=== PATIENT | female | born 1930 | race Hispanic/Latino ===

== ENCOUNTER → 2018-03-27 | Outpatient (CLI) | payer MEDICARE | END | disposition home or self-care (01) | LOC: RAH 09:29 | PROVIDERS: ATTEND Internal Medicine | DX: I08.3 Combined rheumatic disorders of mitral, aortic and tricuspid valves (principal); I31.3 Pericardial effusion (noninflammatory); I11.9 Hypertensive heart disease without heart failure; I48.91 Unspecified atrial fibrillation | CPT/HCPCS: 93306 ==

== ENCOUNTER 2018-04-15 19:58 | Emergency (ER) | payer MEDICARE ==
[2018-04-15] MEDS ORDERED: SODIUM CHLORIDE 0.9% 1000ML 1,000 ML IV ONE (20:55)
== END 2018-04-16 00:49 | disposition home or self-care (01) ==
LOC: EDH 19:58
DX: E10.649 Type 1 diabetes mellitus with hypoglycemia without coma (principal); I10 Essential (primary) hypertension; I48.91 Unspecified atrial fibrillation; Z88.0 Allergy status to penicillin; Z88.6 Allergy status to analgesic agent
CPT/HCPCS: 82948 ×2; 96360; 96361; 99283; J7030

== ENCOUNTER → 2018-10-31 | Outpatient (CLI) | payer MEDICARE ==
[~2018-10-31] MED LIST: APIX2.5T PO; CALC1TAB2 PO; CARV6.25 PO; CHOL100044 PO; CPAP NOTE; FERR325T22 PO; FLUT16H NASAL; FOLI1TAB15 PO; FURO20TA4 PO; LORA-705 PO; ROSU20TA23 PO
== END | disposition home or self-care (01) ==
LOC: RAH 16:20
PROVIDERS: ATTEND Internal Medicine
DX: J90 Pleural effusion, not elsewhere classified (principal)
CPT/HCPCS: 71046

== ENCOUNTER 2018-11-01 13:38 | Inpatient (IN) | payer MEDICARE ==
[~2018-11-01] VITALS: Ht 157.5 cm; Wt 73.7 kg
[~2018-11-01 13:38] MED LIST changes: -LORA-705 PO
[2018-11-01 14:23] LABS: BASOPHILS % (AUTO) 1.1 % (0.0-5.0); EOSINOPHILS % (AUTO) 1.1 % (0.0-8.0); LYMPHOCYTES % (AUTO) 16.5 % (21.0-51.0); MEAN CORPUSCULAR HEMOGLOBIN 31.9 pg (27.0-33.0); MEAN CORPUSCULAR HGB CONC 33.4 g/dL (32.0-36.0); MEAN CORPUSCULAR VOLUME 95.6 fL (79-99); MONOCYTES % (AUTO) 7.5 % (3.0-13.0); NEUTROPHILS % (AUTO) 73.8 % (40.0-77.0); NUCLEATED RED BLOOD CELLS 0.1 % (0.0-0.19); PLATELET COUNT (AUTO) 169 K/uL (130-400); RED BLOOD CELL COUNT(AUTO) 3.97 MIL/uL (4.00-5.50); RED CELL DISTRIBUTION WIDTH 15.3 % (11.0-15.5); WHITE BLOOD COUNT (AUTO) 5.3 K/uL (4.8-10.8)
[2018-11-01 14:33] LABS: POTASSIUM 3.6 mmol/L (3.5-5.1)
[2018-11-01 14:36] LABS: INR 1.29 (0.85-1.15); PARTIAL THROMBOPLASTIN TIME 35.5 SEC (26.3-35.5); PROTHROMBIN TIME 13.5 SEC (9.6-11.6)
[2018-11-01 14:38] LABS: TOTAL PROTEIN, SERUM 7.2 g/dL (6.0-8.3)
[2018-11-01 14:49] LABS: B-TYPE NATRIURETIC PEPTIDE 2160 pg/mL (0-100)
[2018-11-01 15:24] LABS: APPEARANCE,URINE CLEAR (CLEAR); BILIRUBIN,URINE NEGATIVE (NEGATIVE); COLOR,URINE YELLOW (YELLOW); GLUCOSE, URINE (UA) NEGATIVE (NEGATIVE); KETONES,URINE NEGATIVE (NEGATIVE); LEUKOCYTE ESTERASE ,URINE NEGATIVE (NEGATIVE); NITRATE,URINE NEGATIVE (NEGATIVE); OCCULT BLOOD,URINE NEGATIVE (NEGATIVE); PH,URINE 5.5 (5.0-8.0); PROTEIN,URINE NEGATIVE (NEGATIVE); UROBILINOGEN,URINE 0.2 mg/dL (0.2-1.0)
[2018-11-01] MEDS ORDERED: ASPIRIN 325 MG TABLET ONE (15:54)
[2018-11-01] MEDS ORDERED: FUROSEMIDE 10 MG/ML 4ML VIAL ONE (15:54)
[2018-11-01] MEDS ORDERED: GLUCAGON 1MG KIT 1 MG ML IM PRN (18:45)
[2018-11-01] MEDS ORDERED: DEXTROSE 50%-WATER 50 ML DISP.SYRIN IV PRN (18:45)
[2018-11-01] MEDS ORDERED: ONDANSETRON HCL 4 MG/2 ML VIAL IV PRN (19:00)
[2018-11-01] MEDS ORDERED: ACETAMINOPHEN 325 MG TAB PO PRN ×2 (19:00)
[2018-11-01] MEDS ORDERED: NITROGLYCERIN 0.4 MG SL TAB SL PRN (19:00)
[2018-11-01] MEDS ORDERED: FAMOTIDINE/PF 20 MG/2 ML VIAL IV ONE (19:30)
[2018-11-01 20:07] LABS: HEMOGLOBIN A1C 6.3 % (4.0-6.0)
[2018-11-01 20:20] VITALS: BP 113/80
[2018-11-01] MEDS: INSULIN HUMULIN R 100 UNIT/ML 3ML SQ SCH (21:00)
[2018-11-01] MEDS: FAMOTIDINE 20MG TAB 20 MG TAB PO SCH (21:59)
[2018-11-01 22:38] LABS: CREATINE KINASE, TOTAL 38 U/L (21-232); MYOGLOBIN 87 ng/mL (10-92); TROPONIN I < 0.04 ng/mL (0.00-0.06)
[2018-11-01 23:45] VITALS: BP 115/81
[2018-11-02 03:45] VITALS: BP 121/81
[2018-11-02] MEDS ORDERED: ALPRAZOLAM 0.25 MG TABLET ONE (05:24)
[2018-11-02] MEDS ORDERED: ALPRAZOLAM 0.25 MG TABLET PO ONE (05:30)
[2018-11-02] MEDS ORDERED: FUROSEMIDE 10 MG/ML 4ML VIAL IVP SCH (06:00)
[2018-11-02] MEDS: INSULIN HUMULIN R 100 UNIT/ML 3ML SQ SCH ×4 (06:13→21:00)
[2018-11-02 06:38] LABS: BASOPHILS % (AUTO) 1.6 % (0.0-5.0); EOSINOPHILS % (AUTO) 1.1 % (0.0-8.0); HEMATOCRIT 36.4 % (36-48); LYMPHOCYTES % (AUTO) 13.2 % (21.0-51.0); MEAN CORPUSCULAR HEMOGLOBIN 31.2 pg (27.0-33.0); MEAN CORPUSCULAR HGB CONC 32.7 g/dL (32.0-36.0); MEAN CORPUSCULAR VOLUME 95.2 fL (79-99); MONOCYTES % (AUTO) 9.2 % (3.0-13.0); NEUTROPHILS % (AUTO) 74.9 % (40.0-77.0); PLATELET COUNT (AUTO) 177 K/uL (130-400); RED BLOOD CELL COUNT(AUTO) 3.82 MIL/uL (4.00-5.50); RED CELL DISTRIBUTION WIDTH 15.8 % (11.0-15.5); WHITE BLOOD COUNT (AUTO) 5.2 K/uL (4.8-10.8)
[2018-11-02 07:00] VITALS: BP 113/66
[2018-11-02 08:35] LABS: B-TYPE NATRIURETIC PEPTIDE 2030 pg/mL (0-100)
[2018-11-02] MEDS ORDERED: ASPIRIN 325 MG TABLET PO SCH (09:00)
[2018-11-02] MEDS ORDERED: ENOXAPARIN SODIUM 30 MG/0.3 ML SQ SCH (09:00)
[2018-11-02 09:47] LABS: ALANINE AMINOTRANSFERASE 17 U/L (12-78); ALBUMIN 2.6 g/dL (3.5-5.0); ASPARTATE AMINOTRANSFERASE 16 U/L (10-37); BILIRUBIN,TOTAL 1.2 mg/dL (0.2-1.0); CARBON DIOXIDE 26 mmol/L (21-32); CHLORIDE 104 mmol/L (101-111); CREATINE KINASE, TOTAL 31 U/L (21-232); GLOMERULAR FILTR. RATE CALC 25 mL/min (>60); GLUCOSE,RANDOM 115 mg/dL (70-105); MYOGLOBIN 88 ng/mL (10-92); POTASSIUM 3.3 mmol/L (3.5-5.1); SODIUM SERUM 142 mmol/L (136-145); TOTAL PROTEIN, SERUM 6.4 g/dL (6.0-8.3); TROPONIN I < 0.04 ng/mL (0.00-0.06); UREA NITROGEN, BLOOD 38 mg/dL (7-18)
[2018-11-02] MEDS ORDERED: LORA-705 PO (10:12)
[2018-11-02 11:00] VITALS: BP 114/69
[2018-11-02] MEDS ORDERED: METOPROLOL TARTRATE 1 MG/ML 5ML VIAL IV PRN (14:30)
--- NOTE | 2018-11-02 15:20 | NUR ---
patient was exhibiting confusion. I call the tele on how the patient is running on the monitor they reported to me that she is on 110 to 120s. reported to Yohannes [employer], he said that he will order low dose betablocker and ekg.
--- NOTE | 2018-11-02 15:49 | NUR ---
cm note met with patient and [facility] resides at home alone, has a provider a few hrs daily, [facility] ambulates with walker, has daughter erin that assists as needed. and has a sister as well. [facility] plan is back to same home setting at tx. Addendum: 11/02/18 at 1552 by BRYON ALICIA CM Amended: Links added.
[2018-11-02 16:00] VITALS: BP 168/71
[2018-11-02] MEDS: FUROSEMIDE 10 MG/ML 2ML VIAL IV SCH (17:30)
[2018-11-02 19:40] VITALS: BP 127/69
[2018-11-02] MEDS: FAMOTIDINE 20MG TAB 20 MG TAB PO SCH (20:12)
[2018-11-02] MEDS: CARVEDILOL 6.25 MG TABLET PO SCH (20:14)
[2018-11-02 23:22] VITALS: BP 133/59
[2018-11-03] MEDS ORDERED: POTASSIUM CHLORIDE 20 MEQ ERTAB PO SCH (01:00)
[2018-11-03 03:17] VITALS: BP 107/72
[2018-11-03] MEDS: FUROSEMIDE 10 MG/ML 2ML VIAL IV SCH (04:33)
[2018-11-03 04:51] LABS: CREATININE 2.1 mg/dL (0.5-1.5); MAGNESIUM 1.8 mg/dL (1.80-2.40); POTASSIUM 3.5 mmol/L (3.5-5.1)
[2018-11-03] MEDS: INSULIN HUMULIN R 100 UNIT/ML 3ML SQ SCH ×3 (06:34→21:00)
[2018-11-03 07:29] VITALS: BP 117/77
[2018-11-03] MEDS: CARVEDILOL 6.25 MG TABLET PO SCH ×2 (08:45→21:17)
[2018-11-03] MEDS: APIXABAN 2.5 MG TABLET PO SCH ×2 (08:46→21:08)
[2018-11-03] MEDS: FUROSEMIDE 20 MG TABLET PO SCH ×2 (08:46→16:09)
[2018-11-03] MEDS: ASPIRIN 325 MG TABLET PO SCH (08:46)
[2018-11-03 11:02] VITALS: BP 88/55
[2018-11-03 16:26] VITALS: BP 91/51
[2018-11-03 19:58] VITALS: BP 105/76
[2018-11-03] MEDS: FAMOTIDINE 20MG TAB 20 MG TAB PO SCH (21:08)
[2018-11-04] VITALS: BP 108/62
[2018-11-04 04:00] VITALS: BP 97/62
[2018-11-04 04:10] LABS: BASOPHILS % (AUTO) 1.4 % (0.0-5.0); HEMATOCRIT 35.6 % (36-48); LYMPHOCYTES % (AUTO) 17.1 % (21.0-51.0); MEAN CORPUSCULAR HEMOGLOBIN 31.4 pg (27.0-33.0); MEAN CORPUSCULAR HGB CONC 32.9 g/dL (32.0-36.0); MEAN CORPUSCULAR VOLUME 95.4 fL (79-99); MONOCYTES % (AUTO) 10.6 % (3.0-13.0); NEUTROPHILS % (AUTO) 68.9 % (40.0-77.0); PLATELET COUNT (AUTO) 176 K/uL (130-400); RED BLOOD CELL COUNT(AUTO) 3.73 MIL/uL (4.00-5.50); RED CELL DISTRIBUTION WIDTH 15.5 % (11.0-15.5); WHITE BLOOD COUNT (AUTO) 5.5 K/uL (4.8-10.8)
[2018-11-04 04:20] LABS: CREATININE 2.1 mg/dL (0.5-1.5); POTASSIUM 3.3 mmol/L (3.5-5.1)
[2018-11-04 04:40] LABS: B-TYPE NATRIURETIC PEPTIDE 1560 pg/mL (0-100)
[2018-11-04] MEDS: INSULIN HUMULIN R 100 UNIT/ML 3ML SQ SCH ×3 (06:30→16:30)
[2018-11-04 07:25] VITALS: BP 106/56
[2018-11-04] MEDS ORDERED: POTASSIUM CHLORIDE 20 MEQ ERTAB PO SCH (09:00)
[2018-11-04] MEDS ORDERED: ASPIRIN 81MG TAB.CHEW ONE (10:01)
[2018-11-04] MEDS: APIXABAN 2.5 MG TABLET PO SCH (10:06)
[2018-11-04] MEDS: ASPIRIN 325 MG TABLET PO SCH (10:06)
[2018-11-04] MEDS: CARVEDILOL 6.25 MG TABLET PO SCH (10:07)
[2018-11-04 11:18] VITALS: BP 93/74
--- NOTE | 2018-11-04 13:00 | NUR ---
REFERRAL TO [facility]- ACCEPTANCE CONFIRMED PATIENT WILL GO BY PRIVATE CAR. FAMILY REQUESTING COPY OF MED REQ WILL INFORMED PRIMARY RN Addendum: 11/04/18 at 1641 by ARMANI NUNN RN CM Amended: Links added.
[2018-11-04] MEDS: FUROSEMIDE 20 MG TABLET PO SCH ×2 (13:49→17:47)
[2018-11-04 16:18] VITALS: BP 101/66
== END 2018-11-04 19:15 | DRG 291 ==
LOC: EDH 13:38 → EDHIP 18:30 → 4BH 20:19
PROVIDERS: ADMIT Hospitalist; ATTEND Hospitalist
DX: I13.0 Hypertensive heart and chronic kidney disease with heart failure and stage 1 through stage 4 chronic kidney disease, or unspecified chronic kidney disease (principal); I50.43 Acute on chronic combined systolic (congestive) and diastolic (congestive) heart failure; N18.4 Chronic kidney disease, stage 4 (severe); D68.59 Other primary thrombophilia; E11.22 Type 2 diabetes mellitus with diabetic chronic kidney disease; I48.2 Chronic atrial fibrillation; M10.9 Gout, unspecified; M19.90 Unspecified osteoarthritis, unspecified site; F41.9 Anxiety disorder, unspecified; F32.9 Major depressive disorder, single episode, unspecified; E11.21 Type 2 diabetes mellitus with diabetic nephropathy; E11.51 Type 2 diabetes mellitus with diabetic peripheral angiopathy without gangrene; E78.5 Hyperlipidemia, unspecified; F02.80 Dementia in other diseases classified elsewhere, unspecified severity, without behavioral disturbance, psychotic disturbance, mood disturbance, and anxiety; G30.9 Alzheimer's disease, unspecified; G47.33 Obstructive sleep apnea (adult) (pediatric); I42.0 Dilated cardiomyopathy; I44.7 Left bundle-branch block, unspecified; M81.0 Age-related osteoporosis without current pathological fracture; Z79.01 Long term (current) use of anticoagulants; Z79.899 Other long term (current) drug therapy; Z86.010 Personal history of colon polyps; Z98.42 Cataract extraction status, left eye; Z98.41 Cataract extraction status, right eye; Z88.0 Allergy status to penicillin; Z88.5 Allergy status to narcotic agent
CPT/HCPCS: 36415; 70450; 71045; 78580; 80048; 80053; 81003; 82550; 82948; 83036; 83735; 83874; 83880; 84484; 85025; 85378; 85610; 85730; 93005; 93306; 93970; 97039; 99291; A9540; G0378; J1650; J1940; J3490

== ENCOUNTER 2018-11-15 14:47 | Observation (INO) | payer MEDICARE ==
[~2018-11-15] VITALS: Ht 154.9 cm; Wt 74.0 kg
[~2018-11-15 14:47] MED LIST changes: +LORA-705 PO
[2018-11-15 15:26] LABS: BASOPHILS % (AUTO) 1.9 % (0.0-5.0); EOSINOPHILS % (AUTO) 1.2 % (0.0-8.0); HEMATOCRIT 38.5 % (36-48); LYMPHOCYTES % (AUTO) 16.3 % (21.0-51.0); MEAN CORPUSCULAR HEMOGLOBIN 31.5 pg (27.0-33.0); MEAN CORPUSCULAR HGB CONC 32.7 g/dL (32.0-36.0); MEAN CORPUSCULAR VOLUME 96.4 fL (79-99); MONOCYTES % (AUTO) 8.5 % (3.0-13.0); NEUTROPHILS % (AUTO) 72.1 % (40.0-77.0); PLATELET COUNT (AUTO) 138 K/uL (130-400); RED BLOOD CELL COUNT(AUTO) 3.99 MIL/uL (4.00-5.50); RED CELL DISTRIBUTION WIDTH 16.7 % (11.0-15.5); WHITE BLOOD COUNT (AUTO) 5.2 K/uL (4.8-10.8)
[2018-11-15 15:36] LABS: POTASSIUM 4.9 mmol/L (3.5-5.1)
[2018-11-15 15:41] LABS: BILIRUBIN,TOTAL 1.1 mg/dL (0.2-1.0); TOTAL PROTEIN, SERUM 7.3 g/dL (6.0-8.3)
[2018-11-15 15:50] LABS: CREATINE KINASE, TOTAL 78 U/L (21-232); MYOGLOBIN 111 ng/mL (10-92); TROPONIN I < 0.04 ng/mL (0.00-0.06)
[2018-11-15 16:02] LABS: B-TYPE NATRIURETIC PEPTIDE 1780 pg/mL (0-100)
[2018-11-15] MEDS ORDERED: FUROSEMIDE 10 MG/ML 4ML VIAL IVP SCH (17:30)
[2018-11-15] MEDS ORDERED: FUROSEMIDE 10 MG/ML 4ML VIAL ONE (19:04)
[2018-11-15] MEDS ORDERED: FLUTICASONE PROPIONATE 50MCG/SPRAY 16 GM BOTTLE NS PRN (20:30)
[2018-11-15 20:43] VITALS: BP 101/70
[2018-11-15] MEDS ORDERED: DiphenhydrAMINE HCL 50 MG/ML VIAL IV PRN (20:45)
[2018-11-15] MEDS ORDERED: ONDANSETRON HCL 4 MG/2 ML VIAL IV PRN (20:45)
[2018-11-15] MEDS ORDERED: MAG HYDROX/AL HYDROX/SIMETH ES 30 ML SUSP UDCUP PO PRN (20:45)
[2018-11-15] MEDS ORDERED: DIPHENHYDRAMINE HCL 25 MG CAPSULE PO PRN (20:45)
[2018-11-15] MEDS ORDERED: ACETAMINOPHEN 325 MG TAB PO PRN ×2 (20:45)
--- NOTE | 2018-11-15 20:45 | NUR ---
ADMIT PT ADMITTED TO ROOM 316, AAOX3. DENIES ANY PAINS NOR DISCOMFORT AT THIS TIME. NO NOTED SOB, BREATHING WITH EASE ON RA. ADMISSION CARE DONE. ADMISSION V/S MONITORED. ADMISSION DATA BASE UPDATED. ORIENTED TO ROOM AND UNIT.CALL LIGHT WITHIN REACH. IN FOR MORE CARE AND MANAGEMENT. Addendum: 11/15/18 at 2150 by MARQUEZ BENSON RN RN Amended: Links added.
[2018-11-15] MEDS: CARVEDILOL 6.25 MG TABLET PO SCH (21:07)
[2018-11-15] MEDS: APIXABAN 2.5 MG TABLET PO SCH (21:07)
[2018-11-16 00:28] VITALS: BP 104/81
--- NOTE | 2018-11-16 02:00 | NUR ---
ROUNDS PT RESTING WELL, FAIRLY ASLEEP WITH RESPIRATIONS EVEN AND UNLABORED ON RA. NO DISTRESS NOTED. KEPT UNDISTURBED FOR NOW. WILL CONTINUE TO MONITOR. CALL LIGHT WITHIN REACH.
[2018-11-16 04:16] VITALS: BP 111/84
--- NOTE | 2018-11-16 05:55 | NUR ---
ROUNDS PT RESTING WELL, STILL ASLEEP. NO DISTRESS NOTED. KEPT COMFORTABLE IN BED. FOR MORE CARE.
[2018-11-16 06:17] LABS: HEMATOCRIT 36.5 % (36-48); MEAN CORPUSCULAR HEMOGLOBIN 32.1 pg (27.0-33.0); MEAN CORPUSCULAR HGB CONC 33.5 g/dL (32.0-36.0); MEAN CORPUSCULAR VOLUME 96.1 fL (79-99); NUCLEATED RED BLOOD CELLS 0.1 % (0.0-0.19); PLATELET COUNT (AUTO) 135 K/uL (130-400); RED CELL DISTRIBUTION WIDTH 16.7 % (11.0-15.5); WHITE BLOOD COUNT (AUTO) 4.3 K/uL (4.8-10.8)
[2018-11-16 06:26] LABS: CREATININE 2.1 mg/dL (0.5-1.5); POTASSIUM 3.4 mmol/L (3.5-5.1)
[2018-11-16 07:00] VITALS: BP 103/66
--- NOTE | 2018-11-16 08:00 | NUR ---
AM ROUNDS, ASKING WHEN HER DRCheri IS COMING TO SEE HER.
[2018-11-16] MEDS ORDERED: ATORVASTATIN CALCIUM 40 MG TABLET PO SCH (09:00)
--- NOTE | 2018-11-16 10:00 | NUR ---
AMBULATED TO B WITH ASST. AND NOTED PT. BECAME VERY TIRED AND SOB
[2018-11-16] MEDS: APIXABAN 2.5 MG TABLET PO SCH ×2 (10:26→20:01)
[2018-11-16] MEDS: FOLIC ACID 1 MG TABLET PO SCH (10:26)
[2018-11-16] MEDS: CARVEDILOL 6.25 MG TABLET PO SCH ×2 (10:26→20:00)
[2018-11-16] MEDS: FERROUS SULFATE 325 MG TABLET.DR PO SCH (10:26)
[2018-11-16 11:00] VITALS: BP 101/71
[2018-11-16] MEDS ORDERED: ROSU20TA23 PO (12:59)
--- NOTE | 2018-11-16 13:00 | NUR ---
DR. PARKER IN TO SEE PT. MEDS. REVIEWED AND ORDERS ENTERED.
[2018-11-16 16:00] VITALS: BP 111/70
--- NOTE | 2018-11-16 16:00 | NUR ---
FAMILY MEMBER INTERESTED IN POSSIBLE SNF PLACEMENT AND CM MADE AWARE.
[2018-11-16] MEDS ORDERED: FUROSEMIDE 10 MG/ML 4ML VIAL IVP SCH (17:30)
--- NOTE | 2018-11-16 20:00 | NUR ---
MEDS SHIFT ASSESSMENT DONE, PLEASE REFER TO CHART. DUE MEDS ADMINISTERED, TOLERATED WELL. NO DISTRESS NOTED. NO CONCERNS VERBALIZED. CALL LIGHT WITHIN REACH. FAMILY STILL IN ROOM, VISITING WITH PT. Addendum: 11/16/18 at 2027 by MARQUEZ BENSON RN RN Amended: Links added.
[2018-11-16] MEDS: MEMANTINE HCL 5 MG TABLET PO SCH (20:01)
--- NOTE | 2018-11-16 20:54 | NUR ---
cm note spoke to daughter concetta ([phone]) and daughter states pt resides at home alone, needs assists with adls and uses walker ambulation. has private pay provider 2hrs daily, spoke to both daughters one in person and one over the phone, regading dc planning options, and also discussed hospice care options and answered questions. . per daughters wish to wait for decision until tomorrow, and they will discuss with their mother, but they feel that they want her to go to snf level of care. pt has been at [facility] and may wish to return to [facility]. cm to followup tomorrow . no dc needs. Addendum: 11/16/18 at 2057 by BRYON ALICIA Amended: Links added.
[2018-11-16 21:00] VITALS: BP 105/70
--- NOTE | 2018-11-16 22:00 | NUR ---
ROUNDS PT RESTING WELL, FAIRLY ASLEEP. NO DISTRESS NOTED. KEPT UNDISTURBED FOR NOW. BED ALARM KEPT ON. CALL LIGHT WITHIN REACH. WILL MONITOR PT.
[2018-11-17] VITALS (7 sets, daily range): BP systolic 100–123; BP diastolic 58–73
--- NOTE | 2018-11-17 02:00 | NUR ---
ROUNDS PT RESTING WELL, FAIRLY ASLEEP. NO DISTRESS NOTED. KEPT UNDISTURBED FOR NOW. WILL MONITOR CLOSELY.
--- NOTE | 2018-11-17 06:00 | NUR ---
ROUNDS PT EASILY AWAKENS AT THIS TIME. DENIES ANY NEEDS FOR NOW. SALINE LOCK FLUSHED, PATENT. KEPT COMFORTABLE. FOR MORE CARE.
[2018-11-17] MEDS ORDERED: POTA10CA44 PO (07:38)
[2018-11-17] MEDS ORDERED: MEMA5TAB7 PO (07:40)
[2018-11-17] MEDS: CARVEDILOL 6.25 MG TABLET PO SCH ×2 (08:09→21:51)
[2018-11-17 08:11] LABS: CREATININE 1.9 mg/dL (0.5-1.5); POTASSIUM 3.2 mmol/L (3.5-5.1)
[2018-11-17] MEDS: APIXABAN 2.5 MG TABLET PO SCH ×2 (09:11→21:51)
[2018-11-17] MEDS: MEMANTINE HCL 5 MG TABLET PO SCH ×2 (09:11→21:51)
[2018-11-17] MEDS: FAMOTIDINE 20MG TAB 20 MG TAB PO SCH (09:11)
[2018-11-17] MEDS: FOLIC ACID 1 MG TABLET PO SCH (09:11)
[2018-11-17] MEDS: FERROUS SULFATE 325 MG TABLET.DR PO SCH (09:12)
[2018-11-17] MEDS ORDERED: POTA10TA18 PO (09:40)
[2018-11-17] MEDS ORDERED: FURO40TA5 PO (09:40)
[2018-11-17] MEDS: POTASSIUM CHLORIDE 20 MEQ ERTAB PO SCH ×2 (13:19→21:52)
[2018-11-17] MEDS: FUROSEMIDE 40 MG TABLET PO SCH ×2 (13:19→20:17)
--- NOTE | 2018-11-17 17:00 | NUR ---
REFERRAL TO SNF IN PROCESS 1100 MET W DAUGHTERS- THEY WANT TO GO LOOK AT FACILITIES, DARIEL FOR [facility] DAWNDEE[facility] AND FOR [facility], PKTS SENT@ 1200 1600 FAMILY STILL HAS NOT DECIDED ON FACLITY CALL TO [facility]; DIV[facility] REP SAW PT ALSO; 1700 AND RN AWARE NO DECISION YET Addendum: 11/17/18 at 1951 by ARMANI NUNN RN CM Amended: Links added.
--- NOTE | 2018-11-17 19:35 | NUR ---
REPORT REPORT RECEIVED FROM BIA GAN NURSE. NURSE'S ROUNDS DONE. PT RESTING IN BED. NO COMPLAINTS VERBALIZED.
[2018-11-17] MEDS ORDERED: ATORVASTATIN CALCIUM 40 MG TABLET PO SCH (21:00)
[2018-11-17] MEDS ORDERED: ATORVASTATIN CALCIUM 20 MG TABLET PO SCH (21:00)
--- NOTE | 2018-11-17 21:50 | NUR ---
MEDS SHIFT ASSESSMNET DONE, PLEASE REFER TO CHART. DUE MEDS ADMINISTERED, TOLERATED WELL. KEPT RESTED AND COMFORTABLE IN BED. CALL LIGHT WITHIN REACH. BED ALARM KEPT ACTIVATED. WILL MONITOR PT. Addendum: 11/17/18 at 2336 by MARQUEZ BENSON RN RN Amended: Links added.
--- NOTE | 2018-11-18 02:00 | NUR ---
ROUNDS PT FAIRLY ASLEEP WITH RESPIRATIONS EVEN AND UNLABORED. NO NOTED DISTRESS. KEPT UNDISTURBED FOR NOW. CALL LIGHT WITHIN REACH. BED ALARM MAINTAINED. WILL MONITOR PT.
[2018-11-18 03:45] VITALS: BP 97/60
--- NOTE | 2018-11-18 06:00 | NUR ---
ROUNDS PT RESTING WELL. NO CONCERNS VERBALIZED. NO CONFUSION NOTED THIS MORNING BUT STILL IS VERY FORGETFUL. FOR MORE CARE.
[2018-11-18 07:00] VITALS: BP 107/63
[2018-11-18 07:31] LABS: POTASSIUM 3.5 mmol/L (3.5-5.1)
[2018-11-18] MEDS: MEMANTINE HCL 5 MG TABLET PO SCH (10:08)
[2018-11-18] MEDS: CARVEDILOL 6.25 MG TABLET PO SCH (10:09)
[2018-11-18] MEDS: FUROSEMIDE 40 MG TABLET PO SCH (10:09)
[2018-11-18] MEDS: POTASSIUM CHLORIDE 20 MEQ ERTAB PO SCH (10:09)
[2018-11-18] MEDS: FAMOTIDINE 20MG TAB 20 MG TAB PO SCH (10:09)
[2018-11-18] MEDS: FERROUS SULFATE 325 MG TABLET.DR PO SCH (10:09)
[2018-11-18] MEDS: FOLIC ACID 1 MG TABLET PO SCH (10:10)
[2018-11-18] MEDS: APIXABAN 2.5 MG TABLET PO SCH (10:10)
[2018-11-18 11:00] VITALS: BP 92/33
[2018-11-18 16:00] VITALS: BP 101/65
--- NOTE | 2018-11-18 16:54 | NUR ---
REPORT Called to report Nisha Rodrigues LVN. Pending for transportation to arrive.
== END 2018-11-18 17:30 ==
LOC: EDH 14:47 → EDHIP 16:50 → 3CH 20:39
PROVIDERS: ADMIT Internal Medicine; ATTEND Internal Medicine
DX: I13.0 Hypertensive heart and chronic kidney disease with heart failure and stage 1 through stage 4 chronic kidney disease, or unspecified chronic kidney disease (principal); N18.3 Chronic kidney disease, stage 3 (moderate); I50.43 Acute on chronic combined systolic (congestive) and diastolic (congestive) heart failure; E11.21 Type 2 diabetes mellitus with diabetic nephropathy; E11.22 Type 2 diabetes mellitus with diabetic chronic kidney disease; E11.42 Type 2 diabetes mellitus with diabetic polyneuropathy; E11.43 Type 2 diabetes mellitus with diabetic autonomic (poly)neuropathy; E11.51 Type 2 diabetes mellitus with diabetic peripheral angiopathy without gangrene; K31.84 Gastroparesis; E11.65 Type 2 diabetes mellitus with hyperglycemia; E66.9 Obesity, unspecified; E78.2 Mixed hyperlipidemia; G25.0 Essential tremor; G47.30 Sleep apnea, unspecified; H91.92 Unspecified hearing loss, left ear; H93.19 Tinnitus, unspecified ear; I25.10 Atherosclerotic heart disease of native coronary artery without angina pectoris; I48.2 Chronic atrial fibrillation; I83.90 Asymptomatic varicose veins of unspecified lower extremity; K76.0 Fatty (change of) liver, not elsewhere classified; M81.0 Age-related osteoporosis without current pathological fracture; R32 Unspecified urinary incontinence; G30.9 Alzheimer's disease, unspecified; F02.80 Dementia in other diseases classified elsewhere, unspecified severity, without behavioral disturbance, psychotic disturbance, mood disturbance, and anxiety; F32.9 Major depressive disorder, single episode, unspecified; F41.1 Generalized anxiety disorder; Z68.32 Body mass index [BMI] 32.0-32.9, adult; Z79.01 Long term (current) use of anticoagulants; Z79.4 Long term (current) use of insulin; Z79.899 Other long term (current) drug therapy; Z82.49 Family history of ischemic heart disease and other diseases of the circulatory system; Z83.3 Family history of diabetes mellitus
CPT/HCPCS: 36415 ×4; 71045; 80048 ×3; 80053; 82550; 82948 ×11; 83874; 83880; 84484; 85025; 85027; 93005; 96374; 97039; 97116; 97161; 99284; G0378 ×69; G8978; G8979; G8980; G8981; G8982; G8983; J1940 ×2

== ENCOUNTER 2019-01-27 14:15 | Observation (INO) | payer MEDICARE ==
[~2019-01-27] VITALS: Ht 160 cm; Wt 67.1 kg
[~2019-01-27 14:15] MED LIST changes: -CARV3.12 PO; -CLOT15CR62 TP; -DOCU100T PO; -FAMO20TA8 PO
[2019-01-27] MEDS ORDERED: FUROSEMIDE 10 MG/ML 4ML VIAL ONE (14:38)
[2019-01-27] MEDS ORDERED: ASPIRIN 325 MG TABLET ONE (14:38)
[2019-01-27 15:22] LABS: BASOPHILS % (AUTO) 0.7 % (0.0-5.0); HEMATOCRIT 39.7 % (36-48); LYMPHOCYTES % (AUTO) 8.2 % (21.0-51.0); MEAN CORPUSCULAR HEMOGLOBIN 31.9 pg (27.0-33.0); MEAN CORPUSCULAR HGB CONC 33.9 g/dL (32.0-36.0); MEAN CORPUSCULAR VOLUME 94.3 fL (79-99); MONOCYTES % (AUTO) 10.1 % (3.0-13.0); NUCLEATED RED BLOOD CELLS 0.1 % (0.0-0.19); PLATELET COUNT (AUTO) 107 K/uL (130-400); RED BLOOD CELL COUNT(AUTO) 4.21 MIL/uL (4.00-5.50); RED CELL DISTRIBUTION WIDTH 17.8 % (11.0-15.5); WHITE BLOOD COUNT (AUTO) 6.9 K/uL (4.8-10.8)
[2019-01-27 15:32] LABS: INR 1.18 (0.85-1.15); PARTIAL THROMBOPLASTIN TIME 34.2 SEC (26.3-35.5); PROTHROMBIN TIME 12.3 SEC (9.6-11.6)
[2019-01-27 15:34] LABS: CREATININE 3.2 mg/dL (0.5-1.5); POTASSIUM 3.1 mmol/L (3.5-5.1)
[2019-01-27 15:38] LABS: ALBUMIN 2.5 g/dL (3.5-5.0); BILIRUBIN,TOTAL 1.3 mg/dL (0.2-1.0); TOTAL PROTEIN, SERUM 7.3 g/dL (6.0-8.3)
[2019-01-27 15:51] LABS: B-TYPE NATRIURETIC PEPTIDE 1600 pg/mL (0-100)
[2019-01-27 16:45] LABS: PLATELET MORPHOLOGY COMMENT SLIGHTLY DECREASED
[2019-01-27] MEDS ORDERED: MEMA5TAB7 PO (17:12)
[2019-01-27] MEDS ORDERED: FERR325T22 PO (17:12)
[2019-01-27] MEDS ORDERED: FURO40TA5 PO (17:12)
[2019-01-27] MEDS ORDERED: FAMO20TA8 PO (17:12)
[2019-01-27] MEDS ORDERED: CARV3.12 PO (17:12)
[2019-01-27] MEDS ORDERED: POTA10TA18 PO (17:12)
[2019-01-27] MEDS ORDERED: DOCU100T PO (17:12)
[2019-01-27] MEDS ORDERED: ROSU20TA23 PO (17:12)
[2019-01-27] MEDS ORDERED: ACETAMINOPHEN 325 MG TAB PO PRN ×2 (17:30)
[2019-01-27] MEDS ORDERED: DEXTROSE 50%-WATER 50 ML DISP.SYRIN IV PRN (17:30)
[2019-01-27] MEDS ORDERED: ONDANSETRON HCL 4 MG/2 ML VIAL IV PRN (17:30)
[2019-01-27] MEDS ORDERED: DIPHENHYDRAMINE HCL 25 MG CAPSULE PO PRN (17:30)
[2019-01-27] MEDS ORDERED: GLUCAGON 1MG KIT 1 MG ML IM PRN (17:30)
[2019-01-27] MEDS ORDERED: MAG HYDROX/AL HYDROX/SIMETH ES 30 ML SUSP UDCUP PO PRN (17:30)
[2019-01-27] MEDS ORDERED: DiphenhydrAMINE HCL 50 MG/ML VIAL IV PRN (17:30)
[2019-01-27] MEDS ORDERED: LACTULOSE 20 GM/30 ML UDCUP PO PRN (17:30)
[2019-01-27 19:47] LABS: TROPONIN I 0.08 ng/mL (0.00-0.06)
[2019-01-27 21:00] VITALS: BP 89/55
[2019-01-27] MEDS: INSULIN HUMULIN R 100 UNIT/ML 3ML SQ SCH (21:00)
--- NOTE | 2019-01-27 21:00 | NUR ---
ADMIT PT ADMITTED TO ROOM 330 AAOX3 BUT IS FORGETFUL. ADMISSION CARE DONE. ADMISSION DATA BASE COMPLETED. PLACED ON BED ALARM. ORIENTED TO ROOM AND UNIT. IN FOR MORE CARE AND MANAGEMENT. Addendum: 01/27/19 at 2300 by MARQUEZ BENSON RN RN Amended: Links added.
[2019-01-27] MEDS: APIXABAN 2.5 MG TABLET PO SCH (21:23)
[2019-01-27] MEDS: POTASSIUM CHLORIDE 10 MEQ/TAB.SA PO SCH (21:23)
[2019-01-27] MEDS: DOCUSATE SODIUM 100 MG CAP PO SCH (21:24)
[2019-01-27] MEDS: MEMANTINE HCL 5 MG TABLET PO SCH (21:24)
[2019-01-27 21:35] VITALS: BP 103/64
--- NOTE | 2019-01-27 21:57 | NUR ---
PAGED DR PARKER PAGED VIA ANSWERING SERVICE FOR MED CLARIFICATION. CALLED BACK AND REFERRED PT'S V/S AND MEDS. NEW MED ORDER GIVEN, PLEASE REFER TO CPOE.
[2019-01-27] MEDS ORDERED: FUROSEMIDE 10 MG/ML 4ML VIAL IV SCH (22:00)
[2019-01-27] MEDS ORDERED: DIGOXIN 250 MCG/ML 2ML AMP IV SCH (22:15)
[2019-01-27] MEDS: CARVEDILOL 3.125 MG TABLET PO SCH (22:16)
[2019-01-27] MEDS ORDERED: DIGOXIN 250 MCG/ML 2ML AMP ONE (23:07)
[2019-01-27 23:21] LABS: TROPONIN I 0.08 ng/mL (0.00-0.06)
[2019-01-27 23:24] VITALS: BP 94/61
--- NOTE | 2019-01-28 02:00 | NUR ---
ROUNDS PT FAIRLY ASLEEP WITH RESPIRATIONS EVEN AND UNLABORED. NO NOTED DISTRESS. KEPT RESTED AND COMFORTABLE. CALL LIGHT WITHIN REACH. WILL MONITOR PT.
[2019-01-28] MEDS ORDERED: DIGOXIN 250 MCG/ML 2ML AMP IV SCH (02:15)
[2019-01-28 03:41] VITALS: BP 100/46
--- NOTE | 2019-01-28 05:00 | NUR ---
[facility] PCP IN AND GAVE PT A BED BATH, TOLERATED ACTIVITY WELL. NOTED REDNESS/ABRASIONS TO UNDER LEFT BREAST. PICTURE TAKEN AND BARRIER CREAM APPLIED. WAFFLE MATTRESS PLACED IN BED. RE-POSITIONED IN BED WITH HOB ELEVATED. KEPT COMFORTABLE. FOR MORE CARE.
[2019-01-28 05:34] LABS: BASOPHILS % (AUTO) 0.7 % (0.0-5.0); EOSINOPHILS % (AUTO) 0.3 % (0.0-8.0); LYMPHOCYTES % (AUTO) 8.9 % (21.0-51.0); MEAN CORPUSCULAR HGB CONC 33.6 g/dL (32.0-36.0); MEAN CORPUSCULAR VOLUME 95.3 fL (79-99); MONOCYTES % (AUTO) 10.7 % (3.0-13.0); NEUTROPHILS % (AUTO) 79.4 % (40.0-77.0); PLATELET COUNT (AUTO) 93 K/uL (130-400); RED BLOOD CELL COUNT(AUTO) 4.09 MIL/uL (4.00-5.50); RED CELL DISTRIBUTION WIDTH 17.4 % (11.0-15.5); WHITE BLOOD COUNT (AUTO) 5.7 K/uL (4.8-10.8)
[2019-01-28 05:43] LABS: CREATININE 3.1 mg/dL (0.5-1.5)
[2019-01-28] MEDS: INSULIN HUMULIN R 100 UNIT/ML 3ML SQ SCH (05:45)
[2019-01-28 08:16] VITALS: BP 100/50
[2019-01-28] MEDS: MEMANTINE HCL 5 MG TABLET PO SCH (08:48)
[2019-01-28] MEDS: POTASSIUM CHLORIDE 10 MEQ/TAB.SA PO SCH (08:48)
[2019-01-28] MEDS: DOCUSATE SODIUM 100 MG CAP PO SCH (08:49)
[2019-01-28] MEDS: APIXABAN 2.5 MG TABLET PO SCH (08:49)
[2019-01-28] MEDS: CARVEDILOL 3.125 MG TABLET PO SCH (08:52)
[2019-01-28] MEDS ORDERED: FOLIC ACID 1 MG TABLET PO SCH (09:00)
[2019-01-28] MEDS ORDERED: DIGOXIN 125 MCG TABLET PO SCH (09:00)
[2019-01-28] MEDS ORDERED: FAMOTIDINE 20MG TAB 20 MG TAB PO SCH (09:00)
[2019-01-28] MEDS ORDERED: FERROUS SULFATE 325 MG TABLET.DR PO SCH (09:00)
[2019-01-28] MEDS ORDERED: ROSUVASTATIN CALCIUM PO SCH (09:00)
--- NOTE | 2019-01-28 12:00 | NUR ---
INITIAL MET W/ PT WITH PROVIDER AT BEDSIDE, ON OXYGEN; CALL TO DAUGHTER, HAS 03/12 CARE, DME AT HOME, NEW OXYGEN ORDER, CONSENT FOR CRISPIN'S, INFO SENT, WAITING ON DC ORDER AND OXYGEN TO ARRIVE Addendum: 01/28/19 at 1748 by ARMANI NUNN RN CM Amended: Links added.
[2019-01-28] MEDS ORDERED: POTA10TA18 PO (14:46)
[2019-01-28 16:00] VITALS: BP 100/55
[2019-01-28] MEDS ORDERED: CLOT15CR62 TP (16:41)
--- NOTE | 2019-01-28 19:18 | NUR ---
SPOKE WITH DR PARKER WHO VERIFIED THAT SHE CALLED IN THE NEW RX FOR CLOTRIMAZOLE AND THAT PT ALREADY HAS ALL OTHER MEDICATIONS.
--- NOTE | 2019-01-28 20:00 | NUR ---
DISCHARGE HOME, WITH DAUGHTER ... HOME HEALTH WAS ALSO CALLED ANDUPDATE REGARDING THE DISCHARGE , FOLLOWUP CARE. SL TO HER LAC WAS DC WITH NO REDNESS TO SITE , SM PRESSURE DRSG APPLICATION ON..
--- NOTE | 2019-01-28 20:00 | NUR ---
PT LEFT WITH HER O2 PORTABLE TANK , PT . NOTED NO SOB. DAUGHTER AT THE BEDSIDE ,
== END 2019-01-28 20:11 | disposition home health service (06) ==
LOC: EDH 14:15 → EDHIP 16:32 → 3AH 19:36
PROVIDERS: ADMIT Internal Medicine; ATTEND Internal Medicine
DX: I13.0 Hypertensive heart and chronic kidney disease with heart failure and stage 1 through stage 4 chronic kidney disease, or unspecified chronic kidney disease (principal); I50.43 Acute on chronic combined systolic (congestive) and diastolic (congestive) heart failure; I48.2 Chronic atrial fibrillation; E11.21 Type 2 diabetes mellitus with diabetic nephropathy; E11.22 Type 2 diabetes mellitus with diabetic chronic kidney disease; E11.42 Type 2 diabetes mellitus with diabetic polyneuropathy; K31.84 Gastroparesis; R06.02 Shortness of breath; E11.43 Type 2 diabetes mellitus with diabetic autonomic (poly)neuropathy; E11.51 Type 2 diabetes mellitus with diabetic peripheral angiopathy without gangrene; E11.65 Type 2 diabetes mellitus with hyperglycemia; E78.2 Mixed hyperlipidemia; E66.9 Obesity, unspecified; N18.3 Chronic kidney disease, stage 3 (moderate); M81.0 Age-related osteoporosis without current pathological fracture; G25.0 Essential tremor; G30.9 Alzheimer's disease, unspecified; G47.30 Sleep apnea, unspecified; H91.92 Unspecified hearing loss, left ear; H93.19 Tinnitus, unspecified ear; I83.90 Asymptomatic varicose veins of unspecified lower extremity; R32 Unspecified urinary incontinence; Z66 Do not resuscitate; F02.80 Dementia in other diseases classified elsewhere, unspecified severity, without behavioral disturbance, psychotic disturbance, mood disturbance, and anxiety; F32.9 Major depressive disorder, single episode, unspecified; F41.1 Generalized anxiety disorder; K76.0 Fatty (change of) liver, not elsewhere classified; Z68.32 Body mass index [BMI] 32.0-32.9, adult; Z79.01 Long term (current) use of anticoagulants; Z79.4 Long term (current) use of insulin; Z79.899 Other long term (current) drug therapy; Z82.49 Family history of ischemic heart disease and other diseases of the circulatory system; Z83.3 Family history of diabetes mellitus
CPT/HCPCS: 36415 ×2; 71045; 80048; 80053; 82550 ×3; 82948 ×4; 83874 ×2; 83880; 84484 ×3; 85025 ×2; 85610; 85730; 93005; 93306; 94760; 96374; 97039; 97116; 97161; 99284; G0378 ×27; G8978; G8979; G8980; G8981; G8982; G8983; J1160 ×4; J1940

== ENCOUNTER → 2019-01-27 | Outpatient (CLI) | payer MEDICARE ==
[~2019-01-27] MED LIST changes: +CARV3.12 PO; +CLOT15CR62 TP; +DOCU100T PO; +FAMO20TA8 PO; -FURO20TA4 PO; +FURO40TA5 PO; +MEMA5TAB7 PO; +POTA10TA18 PO
== END | disposition home or self-care (01) ==
LOC: SHCH 12:58
PROVIDERS: ATTEND Internal Medicine Cardiovascular Disease
DX: I08.3 Combined rheumatic disorders of mitral, aortic and tricuspid valves (principal); I27.20 Pulmonary hypertension, unspecified; J90 Pleural effusion, not elsewhere classified; I11.0 Hypertensive heart disease with heart failure; I50.43 Acute on chronic combined systolic (congestive) and diastolic (congestive) heart failure
CPT/HCPCS: 93306

== ENCOUNTER 2020-09-26 13:03 | Inpatient (IN) | payer MEDICARE ==
[~2020-09-26] VITALS: Ht 152.4 cm; Wt 61.9 kg
[~2020-09-26 13:03] MED LIST changes: -CALC1TAB2 PO; +CARV3.12 PO; -CARV6.25 PO; -CHOL100044 PO; +CLOT15CR23 TP; -CPAP NOTE; +DOCU100T PO; +FAMO20TA8 PO; -FLUT16H NASAL; +LORA-699 PO; -LORA-705 PO
[2020-09-26 14:01] LABS: BASOPHILS % (AUTO) 0.6 % (0.0-5.0); EOSINOPHILS % (AUTO) 1.9 % (0.0-8.0); HEMATOCRIT 41.3 % (36-48); LYMPHOCYTES % (AUTO) 7.9 % (21.0-51.0); MEAN CORPUSCULAR HEMOGLOBIN 29.9 pg (27.0-33.0); MEAN CORPUSCULAR HGB CONC 32.2 g/dL (32.0-36.0); MEAN CORPUSCULAR VOLUME 92.8 fL (79-99); NEUTROPHILS % (AUTO) 82.2 % (40.0-77.0); PLATELET COUNT (AUTO) 104 K/uL (130-400); RED BLOOD CELL COUNT(AUTO) 4.45 MIL/uL (4.00-5.50); RED CELL DISTRIBUTION WIDTH 17.3 % (11.0-15.5); WHITE BLOOD COUNT (AUTO) 6.8 K/uL (4.8-10.8)
[2020-09-26 14:12] LABS: CREATININE 2.3 mg/dL (0.5-1.5); POTASSIUM 3.4 mmol/L (3.5-5.1)
[2020-09-26 14:17] LABS: ALBUMIN 2.9 g/dL (3.5-5.0); BILIRUBIN,TOTAL 1.5 mg/dL (0.2-1.0); TOTAL PROTEIN, SERUM 7.7 g/dL (6.0-8.3)
[2020-09-26 14:31] LABS: B-TYPE NATRIURETIC PEPTIDE > 5000 pg/mL (0-100)
[2020-09-26 15:36] LABS: APPEARANCE,URINE Cloudy (CLEAR); BILIRUBIN,URINE Negative (NEGATIVE); COLOR,URINE Yellow (YELLOW); GLUCOSE, URINE (UA) Negative (NEGATIVE); KETONES,URINE Negative (NEGATIVE); LEUKOCYTE ESTERASE ,URINE Small (NEGATIVE); NITRATE,URINE Negative (NEGATIVE); OCCULT BLOOD,URINE Negative (NEGATIVE); PROTEIN,URINE Negative (NEGATIVE); UROBILINOGEN,URINE 0.2 mg/dL (0.2-1.0)
[2020-09-26] MEDS ORDERED: FUROSEMIDE 10 MG/ML 4ML VIAL ONE (15:51)
[2020-09-26 16:04] LABS: AMORPHOUS SEDIMENT,UR Few /LPF (None Seen); BACTERIA,URINE Rare /HPF (None Seen); RBC,URINE None Seen /HPF (0-1); SQUAMOUS EPITHELIAL CELL,UR 0-2 /HPF (0-2); WBC,URINE 0-1 /HPF (0-1)
[2020-09-26] MEDS ORDERED: BUSP10TA3 PO (17:03)
[2020-09-26] MEDS ORDERED: POTA10TA18 PO (17:03)
[2020-09-26] MEDS ORDERED: PANT40TA54 PO (17:03)
[2020-09-26] MEDS ORDERED: TRAZ-185 PO (17:03)
[2020-09-26] MEDS ORDERED: METO5TAB7 PO (17:03)
[2020-09-26] MEDS ORDERED: FURO40TA5 PO (17:05)
[2020-09-26 21:41] LABS: TROPONIN I 0.04 ng/mL (0.00-0.06)
[2020-09-26] MEDS ORDERED: ACETAMINOPHEN ELIXIR 650 MG/20.3 ML UDCUP ONE (21:46)
[2020-09-27] MEDS ORDERED: DiphenhydrAMINE HCL 50 MG/ML VIAL IV PRN (01:45)
[2020-09-27] MEDS ORDERED: DIPHENHYDRAMINE HCL 25 MG CAPSULE PO PRN (01:45)
[2020-09-27] MEDS ORDERED: MAG HYDROX/AL HYDROX/SIMETH ES 30 ML SUSP UDCUP PO PRN (01:45)
[2020-09-27] MEDS ORDERED: ACETAMINOPHEN 325 MG TAB PO PRN (01:45)
[2020-09-27] MEDS ORDERED: ONDANSETRON HCL 4 MG/2 ML VIAL IV PRN (01:45)
[2020-09-27] MEDS ORDERED: LACTULOSE 20 GM/30 ML UDCUP PO PRN (01:45)
[2020-09-27] MEDS ORDERED: DEXTROSE 50%-WATER 50 ML DISP.SYRIN IV PRN (02:00)
[2020-09-27] MEDS ORDERED: POTASSIUM CHLORIDE 10MEQ/100ML 100 ML IV PRN (02:00)
[2020-09-27] MEDS ORDERED: GLUCAGON 1MG KIT 1 MG ML IM PRN (02:00)
[2020-09-27] MEDS ORDERED: POTASSIUM CHLORIDE 10% ELIXIR 20 MEQ/15 ML UDCUP PO PRN (02:00)
[2020-09-27] MEDS ORDERED: LIDOCAINE HCL-MPF 1% 2ML VIAL IV PRN (02:00)
[2020-09-27] MEDS ORDERED: ACETAMINOPHEN ELIXIR 650 MG/20.3 ML UDCUP ONE (03:42)
[2020-09-27 06:52] LABS: HEMATOCRIT 38.7 % (36-48); MEAN CORPUSCULAR HEMOGLOBIN 29.3 pg (27.0-33.0); MEAN CORPUSCULAR HGB CONC 31.3 g/dL (32.0-36.0); MEAN CORPUSCULAR VOLUME 93.7 fL (79-99); RED BLOOD CELL COUNT(AUTO) 4.13 MIL/uL (4.00-5.50); RED CELL DISTRIBUTION WIDTH 17.1 % (11.0-15.5); WHITE BLOOD COUNT (AUTO) 5.2 K/uL (4.8-10.8)
[2020-09-27 07:17] LABS: CREATININE 2.2 mg/dL (0.5-1.5); POTASSIUM 3.1 mmol/L (3.5-5.1)
[2020-09-27 08:03] LABS: TROPONIN I 0.07 ng/mL (0.00-0.06)
[2020-09-27] MEDS ORDERED: ENOXAPARIN SODIUM 30 MG/0.3 ML SQ SCH (09:00)
[2020-09-27] MEDS ORDERED: POTASSIUM CHLORIDE 20 MEQ ERTAB PO SCH (09:00)
[2020-09-27] MEDS ORDERED: POTASSIUM CHLORIDE 10% ELIXIR 20 MEQ/15 ML UDCUP ONE ×3 (09:12→13:54)
[2020-09-27] MEDS ORDERED: ENOXAPARIN SODIUM 30 MG/0.3 ML SQ ONE (09:12)
[2020-09-27] MEDS: FUROSEMIDE 10 MG/ML 4ML VIAL IVP SCH ×2 (10:00→21:25)
[2020-09-27] MEDS ORDERED: FUROSEMIDE 10 MG/ML 4ML VIAL ONE (11:34)
[2020-09-27] MEDS ORDERED: PANTOPRAZOLE SODIUM 40 MG TABLET.DR PO PRN (13:45)
[2020-09-27] MEDS: POTASSIUM CHLORIDE 10 MEQ/TAB.SA PO SCH ×2 (14:00→20:29)
[2020-09-27 17:10] VITALS: BP 99/59
[2020-09-27] MEDS: ACETAMINOPHEN 325 MG TAB PO PRN ×2 (17:48→23:07)
[2020-09-27 19:20] VITALS: BP 118/67
[2020-09-27] MEDS: ATORVASTATIN CALCIUM 40 MG TABLET PO SCH (20:29)
[2020-09-27] MEDS: MEMANTINE HCL 5 MG TABLET PO SCH (20:29)
[2020-09-27] MEDS: POTASSIUM CHLORIDE 20 MEQ ERTAB PO PRN (23:08)
[2020-09-27 23:56] VITALS: BP 122/76
[2020-09-28] MEDS: POTASSIUM CHLORIDE 20 MEQ ERTAB PO PRN (00:53)
[2020-09-28] MEDS ORDERED: TRAMADOL HCL 50 MG TABLET PO PRN (03:00)
[2020-09-28 03:25] VITALS: BP 119/72
[2020-09-28 05:30] LABS: HEMATOCRIT 37.9 % (36-48); MEAN CORPUSCULAR HEMOGLOBIN 29.5 pg (27.0-33.0); MEAN CORPUSCULAR HGB CONC 31.4 g/dL (32.0-36.0); MEAN CORPUSCULAR VOLUME 93.8 fL (79-99); RED BLOOD CELL COUNT(AUTO) 4.04 MIL/uL (4.00-5.50); RED CELL DISTRIBUTION WIDTH 16.9 % (11.0-15.5); WHITE BLOOD COUNT (AUTO) 5.4 K/uL (4.8-10.8)
[2020-09-28 05:52] LABS: CREATININE 2.1 mg/dL (0.5-1.5); POTASSIUM 3.3 mmol/L (3.5-5.1)
[2020-09-28 08:00] VITALS: BP 110/69
[2020-09-28] MEDS ORDERED: TRAMADOL /APAP 37.5MG/325MG TAB PO PRN (09:00)
[2020-09-28] MEDS: POTASSIUM CHLORIDE 10 MEQ/TAB.SA PO SCH ×3 (10:35→20:19)
[2020-09-28] MEDS: APIXABAN 2.5 MG TABLET PO SCH ×2 (10:35→20:19)
[2020-09-28] MEDS: MEMANTINE HCL 5 MG TABLET PO SCH ×2 (10:35→20:19)
[2020-09-28] MEDS: FAMOTIDINE 20MG TAB 20 MG TAB PO SCH (10:35)
[2020-09-28] MEDS: FOLIC ACID 1 MG TABLET PO SCH (10:35)
[2020-09-28] MEDS: CEFTRIAXONE SODIUM 500 MG VIAL IV SCH (10:36)
[2020-09-28] MEDS: ACETAMINOPHEN 325 MG TAB PO PRN (10:36)
[2020-09-28] MEDS: FUROSEMIDE 10 MG/ML 4ML VIAL IVP SCH ×2 (10:37→20:25)
[2020-09-28 11:51] VITALS: BP 112/74
[2020-09-28 16:00] VITALS: BP 121/58
[2020-09-28 19:57] VITALS: BP 99/67
[2020-09-28] MEDS: ATORVASTATIN CALCIUM 40 MG TABLET PO SCH (20:18)
[2020-09-29 04:00] VITALS: BP 102/64
[2020-09-29 05:10] LABS: HEMATOCRIT 37.9 % (36-48); MEAN CORPUSCULAR HEMOGLOBIN 29.6 pg (27.0-33.0); MEAN CORPUSCULAR HGB CONC 31.7 g/dL (32.0-36.0); MEAN CORPUSCULAR VOLUME 93.6 fL (79-99); RED BLOOD CELL COUNT(AUTO) 4.05 MIL/uL (4.00-5.50); RED CELL DISTRIBUTION WIDTH 16.9 % (11.0-15.5); WHITE BLOOD COUNT (AUTO) 4.6 K/uL (4.8-10.8)
[2020-09-29 05:23] LABS: CREATININE 2.1 mg/dL (0.5-1.5); POTASSIUM 4.3 mmol/L (3.5-5.1)
[2020-09-29 07:30] VITALS: BP 113/73
[2020-09-29] MEDS: CEFTRIAXONE SODIUM 500 MG VIAL IV SCH (08:03)
[2020-09-29] MEDS: FUROSEMIDE 10 MG/ML 4ML VIAL IVP SCH ×2 (08:03→22:00)
[2020-09-29] MEDS: POTASSIUM CHLORIDE 10 MEQ/TAB.SA PO SCH ×3 (08:04→20:29)
[2020-09-29] MEDS: FOLIC ACID 1 MG TABLET PO SCH (08:04)
[2020-09-29] MEDS: APIXABAN 2.5 MG TABLET PO SCH ×2 (08:05→20:27)
[2020-09-29] MEDS: MEMANTINE HCL 5 MG TABLET PO SCH ×2 (08:06→20:27)
[2020-09-29] MEDS: FAMOTIDINE 20MG TAB 20 MG TAB PO SCH (08:06)
[2020-09-29 11:00] VITALS: BP 102/65
[2020-09-29] MEDS: CEPHALEXIN 250 MG CAPSULE PO SCH ×2 (15:50→20:27)
[2020-09-29 16:00] VITALS: BP 116/72
[2020-09-29 20:00] VITALS: BP 110/68
[2020-09-29] MEDS: ATORVASTATIN CALCIUM 40 MG TABLET PO SCH (20:26)
[2020-09-30] VITALS: BP 116/76
[2020-09-30 04:00] VITALS: BP 109/69
[2020-09-30 05:52] LABS: HEMATOCRIT 41.8 % (36-48); MEAN CORPUSCULAR HGB CONC 31.3 g/dL (32.0-36.0); MEAN CORPUSCULAR VOLUME 92.7 fL (79-99); RED BLOOD CELL COUNT(AUTO) 4.51 MIL/uL (4.00-5.50); RED CELL DISTRIBUTION WIDTH 17.2 % (11.0-15.5); WHITE BLOOD COUNT (AUTO) 5.3 K/uL (4.8-10.8)
[2020-09-30 06:16] LABS: CREATININE 2.6 mg/dL (0.5-1.5); POTASSIUM 4.9 mmol/L (3.5-5.1)
[2020-09-30 08:00] VITALS: BP 113/65
[2020-09-30] MEDS: MEMANTINE HCL 5 MG TABLET PO SCH (09:08)
[2020-09-30] MEDS: FAMOTIDINE 20MG TAB 20 MG TAB PO SCH (09:08)
[2020-09-30] MEDS: CEPHALEXIN 250 MG CAPSULE PO SCH (09:08)
[2020-09-30] MEDS: APIXABAN 2.5 MG TABLET PO SCH (09:08)
[2020-09-30] MEDS: FUROSEMIDE 10 MG/ML 4ML VIAL IVP SCH (09:09)
[2020-09-30] MEDS: FOLIC ACID 1 MG TABLET PO SCH (09:09)
[2020-09-30] MEDS: POTASSIUM CHLORIDE 10 MEQ/TAB.SA PO SCH (09:09)
[2020-09-30] MEDS ORDERED: FURO40TA5 PO (12:43)
[2020-09-30] MEDS ORDERED: FUROSEMIDE 40 MG TABLET PO SCH (17:00)
== END 2020-09-30 14:00 | disposition hospice, home (50) | DRG 291 ==
LOC: EDH 13:03 → EDHIP 13:04 → OBSVTOIN 13:04 → 3DH 09-27 14:44
PROVIDERS: ADMIT Internal Medicine; ATTEND Internal Medicine
DX: I13.0 Hypertensive heart and chronic kidney disease with heart failure and stage 1 through stage 4 chronic kidney disease, or unspecified chronic kidney disease (principal); I50.43 Acute on chronic combined systolic (congestive) and diastolic (congestive) heart failure; N17.9 Acute kidney failure, unspecified; N18.4 Chronic kidney disease, stage 4 (severe); D68.69 Other thrombophilia; G72.0 Drug-induced myopathy; J98.11 Atelectasis; L03.116 Cellulitis of left lower limb; Z51.5 Encounter for palliative care; Z66 Do not resuscitate; I48.0 Paroxysmal atrial fibrillation; E87.6 Hypokalemia; D69.6 Thrombocytopenia, unspecified; E11.22 Type 2 diabetes mellitus with diabetic chronic kidney disease; E11.42 Type 2 diabetes mellitus with diabetic polyneuropathy; E11.43 Type 2 diabetes mellitus with diabetic autonomic (poly)neuropathy; E11.51 Type 2 diabetes mellitus with diabetic peripheral angiopathy without gangrene; E78.2 Mixed hyperlipidemia; F32.9 Major depressive disorder, single episode, unspecified; F02.80 Dementia in other diseases classified elsewhere, unspecified severity, without behavioral disturbance, psychotic disturbance, mood disturbance, and anxiety; G30.9 Alzheimer's disease, unspecified; F41.1 Generalized anxiety disorder; G25.0 Essential tremor; G47.30 Sleep apnea, unspecified; I08.0 Rheumatic disorders of both mitral and aortic valves; I27.20 Pulmonary hypertension, unspecified; I42.0 Dilated cardiomyopathy; I70.0 Atherosclerosis of aorta; K31.84 Gastroparesis; M81.0 Age-related osteoporosis without current pathological fracture; T46.6X5A Adverse effect of antihyperlipidemic and antiarteriosclerotic drugs, initial encounter; Z20.822 Contact with and (suspected) exposure to COVID-19; R33.9 Retention of urine, unspecified; I95.9 Hypotension, unspecified; Z79.01 Long term (current) use of anticoagulants; Z79.899 Other long term (current) drug therapy; Z82.49 Family history of ischemic heart disease and other diseases of the circulatory system; Z83.3 Family history of diabetes mellitus; Y92.89 Other specified places as the place of occurrence of the external cause
CPT/HCPCS: 36415; 71045; 74230; 80048; 80053; 81001; 82550; 82948; 83605; 83735; 83874; 83880; 84132; 84484; 85025; 85027; 87426; 92526; 92610; 92611; 93005; 93306; 93356; A4344; G0378; J0696; J1650; J1940; Q0163; U0003